=== PATIENT | female | born 1990 | race Caucasian/White ===

== ENCOUNTER 2016-09-09 11:52 | Emergency (ER) | payer MEDICAID ==
[~2016-09-09] VITALS: Ht 167.6 cm; Wt 68.0 kg
[2016-09-09 12:01] VITALS: BP 111/71
[2016-09-09] MEDS ORDERED: diphenhydrAMINE HCL 25 MG CAPSULE PO STA (12:13)
[2016-09-09] MEDS ORDERED: ACETAMINOPHEN 325 MG TABLET PO STA (12:13)
[2016-09-09] MEDS ORDERED: diphenhydrAMINE HCL 50 MG CAPSULE ONE (12:14)
[2016-09-09] MEDS ORDERED: ACETAMINOPHEN ES 500 MG TABLET ONE (12:14)
== END 2016-09-09 12:46 | disposition home or self-care (01) ==
LOC: ER 11:55
DX: J32.9 Chronic sinusitis, unspecified (principal)
CPT/HCPCS: 99283; A4606; Q0163; Z7610